=== PATIENT | male | born 1955 | race Caucasian/White ===

== ENCOUNTER 2023-05-31 04:09 | Day surgery (SDC) | payer OTHER, MEDICARE, SELFPAY ==
[2023-05-24 11:37] VITALS: BMI 35.9
--- NOTE | 2023-05-24 12:02 | PC.NURSE ---
Spoke with __PATIENT regarding medication _PLAVIX . Pt. verbalizes understanding that the last dose of __PLAVIX is to be taken on ____05/26/2023 and the Endoscopist will instruct them when to restart after the procedure.
--- NOTE | 2023-05-29 10:00 | SUR.PREOP ---
Patient called regarding upcoming procedure. Reviewed preop instructions, appointment times, and procedure prep.
--- NOTE | 2023-05-29 10:02 | SUR.PREOP ---
Patient called regarding upcoming procedure. Reviewed preop instructions, appointment times, and procedure prep. Medication discussed on what he needs to take the morning of the procedure.
[2023-05-31 09:28] VITALS: BP 126/76; PULSE 78; RESP 18; TEMP 36.4; O2SAT 94
[2023-05-31] MEDS: LACTATED RINGERS 1,000 ML 150 ML IV CONT (09:38)
[2023-05-31 09:45] LABS: Glucose Point of Care 164 mg/dl (65-105)
--- NOTE | 2023-05-31 10:06 | PM.HPGS ---
History of Present Illness History of Present Illness Consent: Risks, benefits, and alternatives have been discussed and questions answered. Patient agrees to proceed with procedure. Chief complaint: Hx colon polyps Narrative: Ryan Merritt is a 67 year old male Presents for screening colonoscopy. Patient has a history of colon polyps in the past. In 2018 was found to have adenomatous colon polyps. His 2 brothers have had colon cancer. Patient reports that his own weight appetite bowel movements currently are normal with no bleeding. No abdominal pain. Review of Systems Review of Systems: Review of systems noncontributory. [facility] Social History Social History Smoking packs per day: 0.5 Smoking cigarettes per day: 10.0 Years smoked: 7 Smoking pack-years: 3.50 Smoking status: Former smoker Tobacco type: cigarettes Alcohol intake: current Substance use: never Living arrangements: with family Spiritual care concerns: No Meds Home Medications and Allergies Home Medications Medication Instructions Recorded Confirmed Type aspirin 81 mg capsule 81 mg PO DAILY 05/24/23 05/24/23 History clopidogrel 75 mg tablet 75 mg PO DAILY 05/24/23 05/31/23 History escitalopram oxalate 20 mg tablet 20 mg PO DAILY 05/24/23 05/24/23 History mecobalamin (vitamin B12) 500 mcg 500 mcg PO DAILY 05/24/23 05/24/23 History chewable tablet metformin 500 mg tablet 500 mg PO BID 05/24/23 05/24/23 History metoprolol tartrate 25 mg tablet 12.5 mg PO BID 05/24/23 05/31/23 History rosuvastatin 40 mg tablet 40 mg PO DAILY 05/24/23 05/24/23 History Allergies Allergy/AdvReac Type Severity Reaction Status Date / Time No Known Allergies Allergy Unverified 05/31/23 09:27 Vital Signs Vital Signs - 24 hr 05/31/23 09:28 Temperature 97.5 F L Pulse Rate 78 Respiratory Rate 18 Blood Pressure 126/76 Pulse Oximetry 94 Oxygen Delivery Room Air Exam Narrative: Physical exam reveals patient to be alert. Vital signs stable. HEENT exam is unremarkable. Patient is anicteric. Lungs are clear to auscultation and percussion. Heart is without murmur or extra sounds. Abdomen bowel sounds are present soft nontender with no organomegaly. Digital external rectal exam normal. Assessment and Plan Assessment and plan (1) History of colon polyps: Code(s): Z86.010 - Personal history of colonic polyps Status: Acute Assessment and Plan: Patient has a history of adenomatous colon polyp most recently 2018. Plan for surveillance colonoscopy at 5 year intervals. (2) Family hx of colon cancer: Code(s): Z80.0 - Family history of malignant neoplasm of digestive organs Status: Acute Assessment and Plan: Two brothers have had colon cancer. Patient himself has colon polyps. Plan for surveillance colonoscopies at least every 5 years.
[2023-05-31 11:07] VITALS: BP 138/95; PULSE 68; RESP 26; O2SAT 98
--- NOTE | 2023-05-31 11:13 | SUR.PHASEII ---
Pt. may resume Plavix tomorrow per Dr Ayon. Instructed pt. Pt. verbalized understanding.
[2023-05-31 11:17] VITALS: BP 104/63; PULSE 62; RESP 14; O2SAT 100
[2023-05-31 11:27] VITALS: BP 101/71; PULSE 61; RESP 24; O2SAT 100
== END 2023-05-31 11:36 | disposition home or self-care (01) ==
PROVIDERS: PCP Internal Medicine; Visit Provider Internal Medicine Gastroenterology
PROC: 0DJD8ZZ Inspection of Lower Intestinal Tract, Via Natural or Artificial Opening Endoscopic (ICD-10-PCS; CPT 45378; principal; 2023-05-31 10:30)
DX: Z12.11 Encounter for screening for malignant neoplasm of colon (principal); D12.5 Benign neoplasm of sigmoid colon; K64.8 Other hemorrhoids; K57.30 Diverticulosis of large intestine without perforation or abscess without bleeding; Z80.0 Family history of malignant neoplasm of digestive organs; Z87.891 Personal history of nicotine dependence
CPT/HCPCS: 45385; 82948; 88305; J2704; J7120

== ENCOUNTER 2025-05-20 07:59 | Outpatient (CLI) | payer OTHER, MEDICARE, SELFPAY ==
--- NOTE | ~2025-05-20 | CT_ITS ---
EXAMINATION:CT lung screening DATE: 05/20/2025 08:30 INDICATION: Screening TECHNIQUE: Computed tomography (CT) of the chest was performed without intravenous contrast. The dose-length product (DLP) was 365.51 mGy-cm. COMPARISON: None. FINDINGS: 6 mm subpleural left lower lobe lung nodule image 76 series 4 is smoothly marginated but not clearly calcified or benign granulomatous nodule. 8 mm benign granuloma in the right lung base image 95 series 4. No other nodules or masses. Lungs are clear. Heart size normal no significant pericardial effusion. Sternal retention wires appear intact. Extensive coronary artery stenting and calcification. No significant pericardial effusion or bulky lymphadenopathy. Diffuse degenerative changes throughout the thoracic spine, mild fatty liver changes, and cholelithiasis noted in the upper abdomen. IMPRESSION: 1. A 6 mm left lower lobe smoothly marginated lung nodule. Lung RADS 3. Correlate with follow-up low-dose lung cancer screening chest CT in 6 months. 2. Other chronic findings as above. Reviewed, dictated and finalized at location A. R HELPER IMPRESSION: 1. A 6 mm left lower lobe smoothly marginated lung nodule. Lung RADS 3. Correla te with follow-up low-dose lung cancer screening chest CT in 6 months. 2. Other chronic findings as above.
--- OUTSIDE RECORDS SUMMARY | 2025-05-20 08:05 | XMS_ITS | Encounter Summary ---
Author Organization [facility] Address [address] [place] [address] Care Team Providers Care Podiatric Medicine Professor Name Role Phone Doroteo Bhatt MD Primary Care Provider [phone] Encounter Details Date Type Department Care Team (Late st Contact Info) Description 12/14/2019 Prep for Procedure [facility] Pre-Ad[facility] Testing [facility] [place], [place] [id number] Reji Willams MD [id number] [id number] Social History Tobacco Use Types Packs/Day Years Used Date Smoking Tobacco: Former Cigarettes Q uit: 2000 Smokeless Tobacco: Never Alcohol Use Standard Drinks/Week Comments Not Currently 0 (1 standard drink = 0.6 oz pur e alcohol) Sex and Gender Information Value Date Recorded Sex Assigned at Not on file Legal Sex Male 12:49 PM CDT Gender Identity Not on file Sexual Orientation Not on file COVID-19 Exposure Response Date Recorded In the last month, have you been in contact with someone who was confirmed or suspected to have Coronavirus / COVID-19? No / Unsure 12/17/2019 8:25 AM CDT documented as of this encounter Plan of Treatment Not on file documented as of this encounter Results * PRE-SURGICAL/PRE-PROCEDURE CORONAVIRUS (COVID 19) (12/14/2019 9:03 AM CDT) CORONAVIRUS SARS COV 2 PCR (RESP) NOT DETECTED NOT DETECTED 12/16/2019 5:13 AM CDT [facility] Comment: A Not Detected (negative) test result for this test means that SARS- CoV-2 RNA was not present in the specimen above the limit of detection. A negative result does not rule out the possibility of COVID-19 and should not be used as the sole basis for treatment or patient management decisions. If COVID-19 is still suspected, based on exposure history together with other clinical findings, re-testing should be considered in consultation with public health authorities. Laboratory test results should always be considered in the context of clinical observations and epidemiological data in making a final diagnosis and patient management decisions. Please review the Fact Sheets and FDA authorized labeling available for health care providers and patients using the following websites: [email or web address]://[email or web address][employer]/home/Covid-19/HCP/[employer]/fact- sheet.html [email or web address]://www.[employer]ceptions.[employer]/home/Covid-19/Patients/ [employer]/fact-sheet.html This test has been authorized by the FDA under an Emergency Use Authorization (EUA) for use by authorized laboratories. Due to the current public health emergency, [facility] is receiving a high volume of samples from a wide variety of swabs and media for COVID-19 testing. In order to serve patients during this public health crisis, samples from appropriate clinical sources are being tested. Negative test results derived from specimens received in non-commercially manufactured viral collection and transport media, or in media and sample collection kits not yet authorized by FDA for COVID-19 testing should be cautiously evaluated and the patient potentially subjected to extra precautions such as additional clinical monitoring, including collection of an additional specimen. Methodology: Nucleic Acid Amplification Test (NAAT) includes PCR or TMA Additional information about COVID-19 can be found at the [employer] website: [email or web address]/Covid19. Test performed at [facility] [id number] [place] [address] Director: RUDDY BARON DO,MPH NASOPHARYNGEAL SWAB / Unknown 12/14/2019 9:03 AM CDT us Reji Willams MD MICROBIOLOGY - GENERAL ORDERA BLES Final Result [facility] [address] [place] [address], documented in this encounter Visit Diagnoses Diagnosis Preoperative testing- Primary Preoperative examination, unspecified documented in this encounter Additional Health Concerns Infection Onset Date Last Indicated Resolved Time COVID-19 Rule Out 12/14/2019 12/14/2019 12/16/2019 5:13 AM CDT documented as of this encounter Care Teams Podiatric Medicine Professor Relationship Specialty Start Date End Date Doroteo Bhatt MD [address] [address] PCP - General INTERNAL MEDICINE 12/11/19 documented as of this encounter
--- OUTSIDE RECORDS SUMMARY | 2025-05-20 08:05 | XMS_ITS | Data Portability ---
Author Organization [place] [facility] [employer] Main Office Address [address] [place] [address] Care Team Providers Care Eye Surgeon Name Role Phone RUBEN BHATT Primary Care Provider [phone] RUBEN BHATT Referring Provider Assessment No assessment recorded. Plan of Treatment Reminders Order Date Submit Date Provider Last Modified By Organization Details Last Modified Time Details Appointments None recorded. Lab HbA1c (hemoglobi n A1c), blood 2024 025 [email or web address] [facility], [address] [place] [address], [facility] [address], [address], 5 09:59:51 lipid panel, serum 2024 025 [id number] [facility], [address] [place] [address], [address], 5 09:59:50 TSH, serum or plasma 2024 025 [id number] [facility], [address] [place] [address], [address], 5 09:59:50 CBC w/ auto diff 2024 025 [facility], [address] [facility], [facility] [address], [address], 5 09:59:50 CMP, serum or plasma 2024 025 [facility], [address] [facility], [facility] 2, [place], [address], 5 09:59:51 HbA1c (hemoglobi n A1c), blood 2024 025 [facility], [address], [place], [address], 5 09:03:29 lipid panel, serum 2024 025 [email or web address] [facility], [address], [place], [address], 5 09:03:28 CMP, serum or plasma 2024 025 [id number] [facility], [address] [facility], [address], [place], [address], 5 09:03:28 CBC w/ auto diff 2024 025 [facility], [address] [facility], [address], [place], [address], 5 09:03:28 unlisted lab - T4, free 2024 025 [id number] [facility], [address] [facility], [facility] 2, [place], [address], 5 09:03:28 TSH, ultra-sens itive, serum 2024 025 [id number] [facility], [address] [facility], [facility] 2, [place], [address], 5 09:03:28 lipid panel, serum 2023 024 [facility], [address] [facility], [address], [place], [address], 4 10:11:32 CMP, serum or plasma 2023 024 [email or web address] [facility], [address], [place], [address], 4 10:11:32 TSH, serum or plasma 2023 024 [id number] [facility], [address], [place], [address], 4 10:11:32 T4, free, serum 2023 024 [id number] [facility], [address], [place], [address], 4 10:11:32 CBC w/ auto diff 2023 024 [id number] [facility], [address], [place], [address], 10:11:32 PSA, serum or plasma 2023 024 [id number] [facility], [address], [place], [address], 10:11:32 HbA1c (hemoglobi n A1c), blood 2023 024 [id number] [facility], [address], [place], [address], 10:11:32 PSA, serum or plasma 2023 024 [id number] [facility], [address], [place], [address], 4 10:20:32 HbA1c (hemoglobi n A1c), blood 2023 024 [facility], [address], [place], [address], 4 10:20:31 microalbum in, urine 2023 024 [facility], [address], [place], [address], 4 10:20:32 lipid panel, serum 2023 024 [email or web address] [facility], [address] [facility], [address], [place], [address], 4 10:20:31 CMP, serum or plasma 2023 024 [facility], [address] [facility], [facility] 2, [place], [address], 4 10:20:31 CBC w/ auto diff 2023 024 [email or web address] [facility], [address] [facility], [address], [place], [address], 4 11:17:16 unlisted lab - T4, free 2023 024 [email or web address] [facility], [address] [place] [address], [facility] 2, [place], [address], 4 10:20:31 TSH, ultra-sens itive, serum 2023 024 [email or web address] [facility], [address] [facility], [facility] 2, [place], [address], 4 10:20:31 HbA1c (hemoglobi n A1c), blood 2022 023 [id number] [facility], [address] [facility], [facility] 2, [place], [address], 4 09:45:38 albumin/cr eatinine, mass ratio, urine 2022 023 [id number] [facility], [address] [facility], [facility] 2, [place], [address], 4 09:45:38 Referral None recorded. Procedures None recorded. Surgeries None recorded. Imaging None recorded. Medication Orders None recorded. Patient TargetsNo targets recorded. Patient Instructions Encounter Date Encounter Id Patient Instructions Last Modified By Organization Details Last Modified Time 05/13/2023 [id number] dementia rating scale-2* [email or web address] Not available 05/13/2023 11:41:21 alcohol misuse* [email or web address] Not available 05/13/2023 11:41:21 depression screening* [email or web address] Not available 05/13/2023 11:41:21 Timed Up and Go test (TUG)* [email or web address] Not available 05/13/2023 11:41:21 multi-dimensiona health assessment questionnaire* [email or web address] Not available 05/13/2023 11:41:21 Personalized a lt Plan and Screening Recommendations Advance Directives - Do you have one? No Not interested at this time Advance Directives - Do we have your advance directive on file in your health record? Primary Prevention/Interven tion (prevents or decreases the chance of common diseases from occurring) Smoking Risk: Non Smoker Alcohol Misuse Screening: Negative Weight: Overweight try to lose 10% of your body weight Physical activity: Need more exercise/physical activity Nutrition: Average Eat heart healthy diet Fall Risk (screened today): Low Vaccines Pneumococcal: Recommended today Influenza: Recommended today Chronic Disease Risks Stroke: Intermediate Risk Active diagnosis, Continue current treatment plan Heart Attack: Intermediate Risk Active diagnosis, Continue current treatment plan Clogging of the Arteries: Intermediate Risk Active diagnosis, Continue current treatment plan Diabetes: Intermediate Risk Active diagnosis, Continue current treatment plan Secondary Prevention/Interven tion (detects treatable diseases before they may cause symptoms, disability, or ) Prostate Cancer Screening: up to date Colon Cancer Screening: Colonoscopy Recommended Date Screening Last Performed: __2018__ Eye Disease Screening: Your next exam in: goes yearly Dementia Risk: Low I have no recommendations Depression Screening: Negative Active diagnosis, Continue current treatment plan [email or web address] Not available 05/13/2023 11:32:39 [facility] risk assessment stable. Follow-up for coronary artery disease, hyperlipidemia, type 2 diabetes, obstructive sleep apnea and obesity class three. Clinically stable. Last hemoglobin A1c was 7.2. Elective December 12 within acceptable ranges. Cholesterol is 142 HDL 37 LDL of 84. Is not due for low-dose CT scan of chest to the fact the stop smoking number years ago. Does need a colonoscopy follow-up. Will check a hemoglobin A1c and microalbumin. Follow up in six months. Portions of the record may have been created with voice recognition software. Occasional wrong-word or s ound-a-like substitutions may have occurred due to the inherent limitations of voice recognition software. Read the chart carefully and recognize, using context, where substitutions have occurred. Follow-up colonoscopy [email or web address] Not available 05/13/2023 11:40:45 11/11/2023 [id number] Follow-up jones ry artery disease, hyperlipidemia, type 2 diabetes obesity class two. Clinically stable. Check blood work consisting of CBC, CMP, lipid, thyroid and PSA. Also needs a hemoglobin A1c and microalbumin. Follow-up in six months Next Appointment: 6 Months Approximate Date: 05/09/2024 Portions of the record may have been created with voice recognition software. Occasional wrong-word or s ound-a-like substitutions may have occurred due to the inherent limitations of voice recognition software. Read the chart carefully and recognize, using context, where substitutions have occurred. Not available 11/11/2023 11:15:45 05/11/2024 [id number] Follow-up jones ry artery disease, type 2 diabetes, hyperlipidemia and obesity all clinically stable. Will check blood work consisting of CBC, CMP, lipid, thyroid and hemoglobin A1c. Continue on current Rx follow-up in six months Follow Up: 6 Months Approximate Date: 11/07/2024 Portions of the record may have been created with voice recognition software. Occasional wrong-word or s ound-a-like substitutions may have occurred due to the inherent limitations of voice recognition software. Read the chart carefully and recognize, using context, where substitutions have occurred. Created: Ruben Bhatt M.D. 05.11.2024 10:59 AM [email or web address] Not available 05/11/2024 11:59:53 11/09/2024 [id number] [facility] risk assessment stable. Follow-up for coronary artery disease, hyperlipidemia, type 2 diabetes and obstructive sleep apnea by history doing well. Will continue on current Rx check blood work consisting of CBC, CMP, lipid, thyroid and hemoglobin A1c level. Will continue on current Rx follow-up in six months Follow Up: 6 Months Approximate Date: 05/08/2025 Portions of record are template driven. When necessary additional context will be provided. Additionally some portions have been created with voice recognition software. Occasional wrong-word or s ound-a-like substitutions may have occurred due to the inherent limitations of voice recognition software. Read the chart carefully and recognize, using context, where substitutions may have occurred. Created: Ruben Bhatt M.D. 11.09.2024 10:14 AM [email or web address] Not available 11/09/2024 11:14:28 05/10/2025 [id number] Follow-up for coronary artery disease, hyperlipidemia, type 2 diabetes all clinically stable. Will continue on current medications follow-up in six months. Will recheck blood work. Additional Orders - Directives - Recommendations Recommended Testing 1. LDCT Immunizations and Vaccines 1. 2023-05 INFLUENZA 2. 2022-01 COVID BOOSTER PFIZER 3. RSV Recommended 4. Shingrix Recommended 5. Tetanus or TD Recommended Recommended Vaccine and Immunizations Discussed With Patient! Follow Up: 4 Months Approximate Date: 09/07/2025 Portions of record are template driven. When necessary additional context will be provided. Additionally some portions have been created with voice recognition software. Occasional wrong-word or s ound-a-like substitutions may have occurred due to the inherent limitations of voice recognition software. Read the chart carefully and recognize, using context, where substitutions may have occurred. Created: Ruben Bhatt M.D. 05.10.2025 10:26 AM [email or web address] Not available 05/10/2025 11:26:10 Reason for Referral None Reported. Results Created Date Observation Date Name Description Value Unit Range Abnormal Flag Note LastModifiedBy Organization Detail LastModifiedTime Result Notes None recorded. Problems Name Problem SNOMED Code Status Onset Date Resolution Date Notes Provider Name and Address Organization Details Recorded Time Pure hyperchole sterolemia 978341635 Active Not Available [facility] 3 14:23:30 Vertigo 426607749 Active Not Available [facility] 3 14:23:30 History of polyp of colon 520356150 Active Not Available [facility] 3 14:23:31 Impaired glucose tolerance 6863702 Active Not Available [facility] 3 14:23:32 Coronary artery stenosis 639096142 Active 2017 Not Available [facility] 3 14:23:30 Depressive disorder 34260029 Active 2017 Not Available [facility] 3 14:23:30 Chronic back pain 815087792 Active 2017 Not Available [facility] 3 14:23:30 Obstructiv e sleep apnea syndrome 22594818 Active 2018 Not Available [facility] 3 14:23:31 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 Not Available [facility] 3 14:23:31 Routine care Active 2021 Not Available [facility] 3 14:23:30 Memory impairment 144161143 Active 2021 Not Available [facility] 3 14:23:30 Screening for malignant neoplasm of prostate Active 2021 Not Available [facility] 3 14:23:31 Nicotine dependence 20066991 Active 2021 Not Available [facility] 3 14:23:31 Trigger finger of right hand 8857795899263 9101 Active 2021 Not Available [facility] 3 14:23:29 Finding of body mass index 302898636 Active 2021 Not Available [facility] 3 14:23:30 Neurogenic claudicati on 204919530 Active 2021 Not Available [facility] 3 14:23:30 Nodule of lung 509301399 Active 2021 Not Available [facility] 3 14:23:32 Pain in left sacroiliac joint 1862215439409 9102 Active 2022 Ruben Bhatt MD [address], [place], [address] , [facility] [employer] [facility] 3 11:58:25 Hyperlipid emia 71779806 Active 2022 Candis Oliva CMA [facility], [facility] 3 14:03:48 Acute gingivitis 41678064 Active 2023 Ruben Bhatt MD [address], [place], [address] , [facility] 4 10:58:24 Obese class II 0338467930489 05 Active 2023 Ruben Bhatt MD [address], [place], [address] , [facility] [employer] [facility] 4 11:10:58 Disorder of prostate 58806077 Active 2023 Ruben Bhatt MD [address], [place], [address] , [facility] [employer] [facility] 4 11:15:35 Steatotic liver disease 832980103 Active 2023 Yolis Hansen null, [facility] [employer] [facility] 4 12:04:32 Type 2 diabetes mellitus 24359440 Active 2024 Candis Oliva CMA null, [facility] [employer] [facility] 5 14:59:56 Problem Notes None recorded. Procedures Surgical History Date Name Laterality Status Provider Name and Address Organization Details Recorded Time 3 Medicare Wellness CPT Code, Initial completed Mariam Alcantar RN [facility] [employer] [facility] 05/13/2023 11:25:48 Imaging Results None recorded. Procedure Notes None recorded. Medical Equipment None Reported. Allergies Allergen ID Allergen Name Allergen Category Reaction Reaction Severity Criticality Documentation Date Start Date Code Code System Note Provider Name and Address Organization Details Recorded Time [address] [facility] medicatio n Not available Not available high 11/09/2024 [id number] RxNorm Anni Joseph [facility] [employer] [facility] 5 11:00:35 Medications Name Sig Start Date Stop Date Status Note LastModified by Organization Details LastModified Time cyclobenz aprine 10 mg tablet Take 1 tablet 3 times a day by oral route. 05/11 completed Not Available Not Available Not Available metformin 500 mg tablet Take 1 tablet by mouth twice daily. active Not Available Not Available No t Available Klor-Con 20 mEq tablet,ex tended release Take 1 tablet every day by oral route. 02/20 completed Not Available Not Available Not Available citalopra m 40 mg tablet Take 1 tablet every day by oral route. 09/21 completed Not Available Not Available Not Available hydrocodo ne 5 mg-acetam inophen 325 mg tablet TK 1 TO 2 TS PO Q 6 H PRF ACUTE PAIN. 09/21 completed Not Available Not Available Not Available Lasix 40 mg tablet Take 1 tablet every day by oral route. 02/20 completed Not Available Not Available Not Available meloxicam 15 mg tablet 03/21 completed Not Available Not Available Not Available bupivacai ne HCl 0.5 % (5 mg/mL) injection solution Take 1 mL by injectio n route. 11/22 completed Not Available Not Available Not Available clopidogr el 75 mg tablet Take 1 tablet every day by oral route. active Not Available Not Available No t Available aspirin 81 mg tablet,de layed release Take 1 tablet every day by oral route. 2012 active Not Available Not Available Not Avai lable oxycodone -acetamin ophen 5 mg-325 mg tablet Take 1 tablet every 6 hours by oral route. 02/20 completed Not Available Not Available Not Available citalopra m 20 mg tablet Take 1 tablet by mouth daily. 09/21 completed Not Available Not Available Not Available Vitamin D3 10 mcg (400 unit) tablet Take 1 tablet every day by oral route. active Not Available Not Available No t Available famotidin e 20 mg tablet Take 1 tablet every day by oral route. 02/20 completed Not Available Not Available Not Available Kenalog 10 mg/mL suspensio n for injection In office injectio n administ ered by the provider 11/22 completed [facility]: [phone] 09-20 Not Available Not Available Not Available cephalexi n 500 mg capsule TK ONE C PO TID FOR 7 DAYS 09/21 completed Not Available Not Available Not Available erythromy elizabeth 5 mg/gram (0.5 %) eye ointment APPLY A SMALL AMOUNT IN AFFECTED EYE(S) THREE TIMES DAILY DIRECTED active Not Available Not Available No t Available cyanocoba daryl (vit B-12) 1,000 mcg/mL injection solution Inject 1 mL every month by intramus cular route. 02/14 completed Not Available Not Available Not Available metformin 1,000 mg tablet Take 1 tablet twice a day by oral route. active Not Available Not Available No t Available Valtrex 1 gram tablet Take 1 tablet 3 times a day by oral route. 08/22 completed Not Available Not Available Not Available gabapenti n 300 mg capsule 03/21 completed Not Available Not Available Not Available [place] 10 mg-325 mg tablet Take 1 tablet every 6 hours by oral route. 05/21 completed [place] [employer] cover the informat ion containe d in this database Increase Text Size Decrease Text Size Restore Default Font-Siz eClick to Resize TextLast Name First Name Street Address City State Zip Date of Date Filled Label Name Strength Metric Qty/Days Supply Payment Type ? Pharmacy Name/ City Prescrib er Name [place] [address] [facility] [address] 7 10/03/2017 HYDROCOD ONE-ACET AMINOPHE N 7.5-325M G 40/10 Insuran e [facility] RUBEN BHATT MD [place] [address] [facility] [id number] 7 09/09/2017 HYDROCOD ONE-ACET AMINOPHE N 7.5-325M G 40/10 [facility] e [facility] [place] MARCO BHATT Not Available Not Available Not Available [place] 7.5 mg-325 mg tablet Take 1 tablet every 6 hours by oral route. 10/24 completed Not Available Not Available Not Available Zocor 40 mg tablet Take 1 tablet every day by oral route. 2012 active Not Available Not Available Not Avai lable glipizide 5 mg tablet TAKE 1 TABLET BY MOUTH TWICE DAILY active Not Available Not Available No t Available amoxicill in 875 mg-potass ium clavulana te 125 mg tablet TAKE 1 TABLET BY MOUTH EVERY 12 HOURS 11/10 completed Not Available Not Available Not Available escitalop july 20 mg tablet Take 1 tablet by mouth daily. 2024 active Not Available Not Available Not Avai lable rosuvasta tin 40 mg tablet Take 1 tablet by mouth daily. 2024 active Not Available Not Available Not Avai lable Crestor 10 mg tablet Take 1 tablet every day by oral route. active Not Available Not Available No t Available Crestor 20 mg tablet Take 1 tablet every day by oral route. 10/13 completed Not Available Not Available Not Available metoprolo l tartrate 25 mg tablet Take 1 tablet twice a day by oral route. active Not Available Not Available No t Available Lyrica 25 mg capsule Take 2 capsules every day by oral route. 2012 active Not Available Not Available Not Avai lable metoprolo l tartrate 6.25 mg bid 02/20 completed Not Available Not Available Not Available docusate calcium 02/20 completed Not Available Not Available Not Available lidocaine (PF) 10 mg/mL (1 %) injection solution In office injectio n administ ered by the provider 07/26 completed [facility]: 0409-427 11-17 Not Available Not Available Not Available diclofena c 1 % topical gel APPLY 2 GRAMS DAILY TOPICALL Y TO SORE PORTION OF CHEST AND RUB IN DIRECTED 09/21 completed Not Available Not Available Not Available sodium,po tassium,m ag sulfates 17.5 gram-3.13 gram-1.6 gram oral soln [employer]ITT[employer] IONS. active Not Available Not Available No t Available Farxiga 10 mg tablet 11/09 completed Not Available Not Available Not Available FreeStyle Ashley 3 Sensor device use to check blood sugar continuo usly 2024 active Not Available Not Available Not Avai lable FreeStyle Ashley 3 Rodney USE TO MONITOR BLOOD SUGAR active Not Available Not Available No t Available FreeStyle Ashley 3 Rodney use to monitor blood sugar 05/03 completed Not Available Not Available Not Available Vitals Date Recorded Body height Body mass index (BMI) Body weight Heart rate Body temperature Oxygen saturation Systolic And Diastolic Provider Name and Address Organization Details Last Updated DateTime 5 172.72 cm 37.1 kg/m2 592419. 54 g 70 /min 97 [degF] 96 % 122/60 mm[Hg] Anni Joseph [facility] 5 10:59:27 Date Recorded Body height Body mass index (BMI) Body weight Heart rate Body temperature Oxygen saturation Systolic And Diastolic Provider Name and Address Organization Details Last Updated DateTime 4 172.72 cm 37.7 kg/m2 912477. 91 g 85 /min 97.4 [degF] 96 % 118/70 mm[Hg] AVINASH Polo [facility] 4 10:54:42 Date Recorded Body height Body mass index (BMI) Body weight Body temperature Heart rate Respiratory rate Oxygen saturation Systolic And Diastolic Provider Name and Address Organization Details Last Updated DateTime 5 172.72 cm 37.4 kg/m2 890965. 72 g 97.5 [degF] 62 /min 16 /min 98 % 112/64 mm[Hg] Bekah Luis RN [facility] 5 10:48:46 Date Recorded Body height Body mass index (BMI) Body weight Heart rate Body temperature Oxygen saturation Systolic And Diastolic Provider Name and Address Organization Details Last Updated DateTime 4 172.72 cm 36.8 kg/m2 388284. 35 g 67 /min 97 [degF] 96 % 112/72 mm[Hg] Christy Richardson Angella [facility] 4 11:37:59 Date Recorded Body height Body mass index (BMI) Body weight Heart rate Body temperature Oxygen saturation Systolic And Diastolic Provider Name and Address Organization Details Last Updated DateTime 3 172.72 cm 38.2 kg/m2 521440. 48 g 65 /min 97 [degF] 97 % 122/60 mm[Hg] Anni Joseph [facility] 3 11:19:04 Date Recorded Pain severity - 0-10 verbal numeric rating [Score] - Reported Provider Name and Address Organization Details Last Updated DateTime 05/13/2023 0 Mariam Alcantar RN [facility] 05/13/2023 11:26:04 Social History Question Answer Notes LastModified by Organizat ion Details LastModified Time Tobacco Smoking Status Former Smoker Not Available [facility] 08/01/2022 14:17:16 Do You Have An Advance Directive? No [id number] Information not available 08/01/2022 Are You Blind Or Do You Have Difficulty Seeing? No [email or web address] Information not available 05/13/2023 Are You Deaf Or Do You Have Serious Difficulty Hearing? No [email or web address] Information not available 05/13/2023 What Type Of Diet Are You Following? REGULAR [email or web address] Information not available 05/13/2023 Have There Been Any Changes To Your Family Or Social Situation? No [email or web address] Information not available 05/13/2023 What Is The Fluoride Status Of Your Home? Unknown [email or web address] Information not available 05/13/2023 When Did You Quit Smoking? 16+yearssincelastci ally [id number] Information not available 08/01/2022 Are There Any Guns Present In Your Home? No Information not available 05/13/2023 Do You Use Insect Repellent Routinely? No [email or web address] Information not available 05/13/2023 Where Do You Live? SingleLevelHouse [email or web address] Information not available 05/13/2023 Guns Present In The Home? No [email or web address] Information not available 05/13/2023 Are You Able To Care For Yourself? Yes [email or web address] Information not available 05/13/2023 Are You Blind Or Do Yo Have Difficulty Seeing? No [email or web address] Information not available 05/13/2023 Are You Deaf Or Do You Have Serious Difficulty Hearing? No [email or web address] Information not available 05/13/2023 Live Alone Of With Others? With Others [email or web address] Information not available 05/13/2023 Do You Have A Medical Power Of Operator Receptionist? No [id number] Information not available 08/01/2022 What Was The Date Of Your Most Recent Tobacco Screening? 05/13/2023 [email or web address] Information not available 05/13/2023 Do You Have Any Pets? Yes [email or web address] Information not available 05/13/2023 What Is Your Relationship Status? [email or web address] Information not available 05/13/2023 Do You Use Your Seat Belt Or Car Seat Routinely? Yes [email or web address] Information not available 05/13/2023 Do You Have Smoke And Carbon Monoxide Detectors In Your Home? Yes [email or web address] Information not available 05/13/2023 Are You Passively Exposed To Smoke? No [email or web address] Information not available 05/13/2023 Are There Any Smokers In Your House? No Information not available 05/13/2023 Do You Use Sunscreen Routinely? Yes [email or web address] Information not available 05/13/2023 Have You Recently Traveled Abroad? No [email or web address] Information not available 05/13/2023 Do You Have Difficulty Walking Or Climbing Stairs? No [email or web address] Information not available 05/13/2023 Sex: Male Functional Status Question Answer Note LastModified by Organizat ion Details LastModified Time What is your level of alcohol consumption? Occasional [email or web address] Information not available 05/13/2023 Do you have transportation difficulties? No [email or web address] Information not available 05/13/2023 Are you able to walk independently without assistance or assistive devices? YESWOREST [email or web address] Information not available 05/13/2023 Do you have difficulty doing errands alone? No [email or web address] Information not available 05/13/2023 Are you able to care for yourself independently? Yes Information not available 05/13/2023 Do you have difficulty dressing, bathing, grooming, or toileting? No [email or web address] Information not available 05/13/2023 What is your exercise level? Occasional [email or web address] Information not available 05/13/2023 Mental Status Question Answer Note LastModified by Organization D etails LastModified Time Do you have difficulty concentrating, remembering or making decisions? No [email or web address] Information no t available 05/13/2023 Family History Relationship Description Onset Age of this Age Resolved Age Notes LastModified by Organization Details LastModified Time Sister Family history of malignant neoplasm [id number] Not available 08/01/2022 14:17:33 Sister Hypertensive disorder [id number] Not available 08/01/2022 14:17:34 Brother Family history of malignant neoplasm [id number] Not available 08/01/2022 14:17:34 Brother Diabetes mellitus [id number] Not available 08/01/2022 14:17:34 Brother Heart disease [id number] Not available 08/01/2022 14:17:34 Notes:Mother 65 yea rs old Father 80 years old 3 Brothers 1 Living 4 Sisters 3 Living Mother Hx: Seizures, ASHD Father Hx: CVA Sister Hx: Accidental (1) Brother Hx: Ca of Colon (2) Medical History Condition Response NERVE DISEASE N BLINDNESS N RHEUMATIC FEVER N KIDNEY STONES N BLADDER PROBLEMS N MRSA N OTHER # 1 N POLIO N LUNG DISEASE/DISORDER N HISTORY OF DRUG ABUSE N RADIATION / CHEMOTHERAPY N COPD N Other # 2 N BLOOD DISEASES N EAR OR HEARING PROBLEMS N MUMPS N SHINGLES N BOWEL PROBLEMS N DEPRESSION (INCLUDING POST ) N STROKE/TIA N ULCERS N BENIGN PROSTATIC HYPERPLASIA N MEASLES N HYPOTENSION N MYOCARDIAL INFARCTION N OBESITY N GERD/NAUSEA N ANEURYSM N URINARY/BLADDER/KIDNEY PROBLEMS N CORONARY ARTERY DISEASE (CAD) Y ADDICTION CONCERNS N ENDOMETRIOSIS N Impotence N USE OF BLOOD THINNERS N SKIN PROBLEMS N GASTROINTESTINAL DISORDER N PERIPHERAL VASCULAR DISEASE N MUSCLE,JOINT OR BONE PROBLEMS N GASTROINTESTINAL BLEEDING N BLOOD CLOTS N ASTHMA N CATARACTS N ERECTILE DYSFUNCTION N VARICOSITIES N GI PROBLEMS N Low Testosterone N INFERTILITY N AIDS/HIV N CHEMOTHERAPY / RADIATION N LIVER DISEASE N MALE HYPOGONADISM N HYPERTENSION N Deficiency N TOURETTE'S N ANXIETY DISORDER N BLOOD TRANSFUSION N ANEMIA/BLOOD DISORDER N CHRONIC EAR INFECTIONS N BRONCHITIS N TUBERCULOSIS N GLAUCOMA N FOOT PROBLEM N DIVERTICULITIS N CHICKENPOX N SLEEP APNEA Y INFECTIOUS DISEASE N HEART ARRHYTHMIA N PROSTATE N INSOMNIA N HIGH CHOLESTEROL / HYPERLIPIDEMIA Y HYPERTHYROIDISM N EYE PROBLEMS N EDEMA N CHRONIC PAIN SYNDROME N HYPOTHYROIDISM N CAROTID BLOCKAGE N CONSTIPATION N BACK / NECK PROBLEMS N HAVE YOU BEEN HOSPITALIZED OR SEEN IN [facility] IN THE PAST YEAR ? N ATHEROSCLEROSIS N BREAST PROBLEMS N DIALYSIS N ECZEMA N OSTEOPOROSIS N ARTHRITIS N NO SIGNIFICANT PAST MEDICAL HISTORY N APPENDICITIS N DIABETES, TYPE Y BAD TEETH N ENT N HEARTBURN / REFLUX N AUTISM SPECTRUM DISORDER (ASD) N HEPATITIS / LIVER DISEASE N GOUT N SLEEP DISORDER N ALZHEIMER'S DISEASE N Brain Problems N HERPES N DEMENTIA N HEADACHES/MIGRAINES N SEIZURES/EPILEPSY N VASCULAR DISEASE N PACEMAKER N Blood Disorder N DIZZINESS N HEART DISEASE/HEART PROBLEMS N KIDNEY DISEASE N MULTIPLE SCLEROSIS N CARDIAC ARRHYTHMIA N CANCER: SPECIFY N ATRIAL FIBRILLATION N Gall Stones N PULMONARY EMBOLISM N AUTOIMMUNE DISEASE N Immunizations Vaccine Type Date Status Note Provider Nam e and Address Organization Details Recorded Time Influenza, high-dose, trivalent, PF 5 completed Bekah Luis RN null, [place] [facility] 05/11/2025 08:41:27 Influenza, high-dose, quadrivalent, PF 3 completed Ruben Bhatt MD [address], [address], [place], [address], [place] [facility] 05/13/2023 11:33:56 SARS-COV-2 (COVID-19) vaccine, UNSPECIFIED 2 completed Not Available [facility] 08/01/2022 14:32:53 SARS-COV-2 (COVID-19) vaccine, UNSPECIFIED 1 completed Not Available [facility] 08/01/2022 14:32:54 COVID-19 Non-[place] Vaccine, UNSPECIFIED 1 completed Not Available [facility] 08/01/2022 14:32:54 COVID-19 Non-US Vaccine, UNSPECIFIED 1 completed Not Available [facility] 08/01/2022 14:32:54 Influenza, high-dose, quadrivalent, PF 2 completed Not Available [facility] 08/01/2022 14:32:54 Influenza, split virus, quadrivalent, PF 6 completed Not Available [facility] 08/01/2022 14:32:54 Influenza, split virus, quadrivalent, preservative 5 completed Not Available [facility] 08/01/2022 14:32:55 Past Encounters Encounter ID Performer Location Encounter Start Date Encounter Closed Date Diagnosis/Indication Diagnosis SNOMED-CT Code Diagnosis ICD10 Code Diagnosis IMO Codes Diagnosis Note [id number] Ruben Bhatt MD [facility] Internal Med [facility] [address] [facility] [address] [place] [address] 09/21/2020 00:00:00 09/21/2020 11:49:05 [id number] Ruben Bhatt MD [facility] Internal Med [facility] [address], [facility] [address] [place] [address] 01/25/2021 00:00:00 01/25/2021 11:03:26 [id number] Alberto Patel MD [facility] [place] [address] [place] [address] 02/14/2021 00:00:00 02/14/2021 09:45:58 [id number] Alberto Patel MD [facility] [place] [address] [place] [address] 03/28/2021 00:00:00 03/28/2021 09:40:59 [id number] Ruben Bhatt MD [facility] [place] [address] [address] 07/26/2021 00:00:00 07/26/2021 11:32:35 [id number] Alberto Patel MD [facility] [place] [address] [facility] [address] [place] [address] 08/15/2021 00:00:00 08/15/2021 09:38:20 [id number] Ruben Bhatt MD [facility] [place] [address] [address] 11/22/2021 00:00:00 11/22/2021 11:19:21 [id number] Ruben Bhatt MD [facility] [place] [address] [address] 03/21/2022 00:00:00 03/21/2022 11:04:41 [id number] Ruben Bhatt MD [facility] [address] [address] 07/18/2022 00:00:00 07/18/2022 10:57:25 [id number] Ruben Bhatt MD [facility] [address] [address] 11/12/2022 11:19:13 11/12/2022 12:10:04 Coronary artery stenosis 888959875 I25.10 Obstructiv e sleep apnea syndrome 42458745 G47.33 Type 2 oanh betes mellitus without complication 342635490 E11.9 Pure hypercholesterolemia 954024243 E78.00 Pain in le ft sacroiliac joint 0352248899 0840276 M53.3 Obese class II 895181148 1 65486 E66.9 Disorder of prostate 302 49636 N42.9 [id number] Ruben Bhatt MD [facility] [address] [address] [address] 05/13/2023 11:07:52 05/13/2023 11:47:02 Administration of influenza vaccine 59571042 Z23 Adult heal th examination 591354645 Z00.00 Screening for disorder 602767572 Z13.9 Coronary a rtery stenosis 248159318 I25.10 Hyperlipidemia 82127972 E78.5 Type 2 oanh betes mellitus without complication 312056857 E11.9 Obstructiv e sleep apnea syndrome 41346070 G47.33 Obese class III 72969867 5 E66.01 [id number] Ruben Bhatt MD [facility] Internal Med [address] [address] [address] 11/11/2023 10:48:58 11/11/2023 11:19:35 Coronary artery stenosis 399140077 I25.10 Hyperlipidemia 99832690 E78.5 Type 2 oanh betes mellitus without complication 022594366 E11.9 Obese class II 129763017 1 74163 E66.9 Disorder of prostate 302 25184 N42.9 [id number] Ruben Bhatt MD [facility] Internal Med [place] [address] [address] 05/11/2024 11:27:34 05/11/2024 12:11:20 Coronary artery stenosis 292424987 I25.10 Type 2 oanh betes mellitus without complication 206189722 E11.9 Pure hypercholesterolemia 194677145 E78.00 Depressive disorder 3548 9007 F32.A Disorder of prostate 302 54695 N42.9 [id number] Ruben Bhatt MD [facility] Internal Med [place] [address] [address] 11/09/2024 10:46:54 11/09/2024 11:17:24 General examination of patient 383874969 Z00.00 [id number] Coronary a rtery stenosis 256085855 I25.10 Pure hypercholesterolemia 824147160 E78.00 Type 2 oanh betes mellitus 22499740 E11.9 73299898 Obstructiv e sleep apnea syndrome 02242684 G47.33 [id number] Ruben Bhatt MD [facility] Internal Med [place] [address] [address] 05/10/2025 10:40:30 05/10/2025 11:40:01 Coronary artery stenosis 357269686 I25.10 Pure hypercholesterolemia 024284025 E78.00 Type 2 oanh betes mellitus 55252237 E11.69 E11.9 23118345 [id number] Health Concerns Section Related Observation LastModified by Organization Detai ls LastModified Time None Recorded Concern Status LastModified by Organization Details LastModified Time None Recorded Advance Directives Directive N: Payers Insurance Date Sequence Insurance Name Policy Number Policy Yen Covered Member ID Yen Member ID Guarantor Name 05/08/2025 1 [facility] [id number] Lynn Merritt [id number] Ryan Shrestha Chester 05/08/2025 2 [place] Ryan Merritt [id number] Ryan Shrestha Chester Notes Date Note Type Note Provider Name and Address Organization Details Recorded Time 05/13/2023 text/html Patient Name: Ryan Merritt SrDate Of Service: Saturday ( 05.13.2023 ): 1955 Age: 67 Vital Signs:Blood Pressure: Sitting Rt. Arm 122/60Pulse: Sitting 65 /min and RegularRespiratory Rate: 12Height 68 in or 1.7 mWeight 251 lb or 113.9 kgBMI 38.2Temperature: 97 F or 36.1 CPulse Oximetry: 97 % at rest on no oxygen Chief Complaint: Addressed in HPI Problems or conditions discussed in the HPI were the only ones reviewed during the encounter.Only social and family history addressed in the HPI were reviewed during this encounter. A significant, separate E/M service was performed to evaluate the current and new problems. Attendant(s): NoneConstitutional and Systemic Symptoms:none Medication Reconciliation: from medication list. Wqhhgpyxcme31/13/2023: Echocardiogram shows an estimated ejection fraction approximately 55%. Normal-appearing mitral valve mitral valve regurgitation mild. Chronic valve leaflets are structurally normal. No evidence of aortic insufficiency. The tricuspid valves well visualized there is mild tricuspid regurgitation. History of Present Illness Reviewed the findings of the preventative health visit. Addressed all areas with the patient, patient's family or caregivers. Preventative examinations and testing immunizations - vaccinations, colonic neoplasm screening, PSA and LDCT thorax all reviewed and ordered where patient was amenable to the recommendations. Cognitive function was normal. Depression addressed and where necessary medications were adjusted or instituted. End of life and living will briefly discussed with patient and where these can be filled out and legally executed. Other blood and imaging studies were ordered if considered necessary. Other recommendations may be found in the encounter note. #1. Coronary Artery Disease: There has been no change in frequency - duration - intensity in frequency, duration or intensity of chest pain. Other Complaints: none The frequency of anginal attacks is none at all. Additional Symptoms: none Therapy reviewed regarding cardiovascular management includes Aspirin, Crestor, Metoprolol Tartrate and Plavix #2. Type II Hypercholesterolaemia: Currently taking medication and tolerating well. No interval complaints of any muscle pain or arthralgia. No significant liver changes with medications. Last lipid panel: fair control. Therapy reviewed regarding treatment of cholesterol management and include diet and Crestor. #3. Type II Diabetes: Has had no polyuria polyphagia or polydipsia. Has had no hypoglycemic like responses. No new history of any numbness, tingling, weakness or visual problems. No nausea, anorexia or other constitutional symptoms. There has been no foot problems or non healing lesions. The last HAIC was <6.5. Average blood sugars 125-150 mg%. Checking sugars : several times a week Medication Types Include: Metformin Secondary complications include none. Macro-vascular complications include ASHD. Therapy reviewed regarding diabetic management and include Glucophage Compliance: good Renal Protection: not required at this stage Lipid management: statins Urinary microalbumin: A1 . Ophthalmological: has seen eye doctor within the last year #4. Sleep Apnea: Type: JEFFERY Current doing well. No significant daytime somnolence or problems performing daily chores. Using CPAP on nightly basis . Overall has shown considerable improvement.[place] Sleepiness ScaleSitting and ReadinWatching TV: 1Sitting Inactive in a Public Place: 1Passenger in a Car: 1Lying Down in Afternoon: 0Sitting and Talking to someone: 1Sitting quietly after lunch: 0In a car while stopped or drivinScore Interpretation: 0-7 No evidence of abnormally sleepy #5. Hx of obesity. Currently Class 3 Obesity VT > 40. Has tried numerous dietary support and supplements with no benefit. Instructed on the health consequences of the obese status particularly cancer - diabetes and heart disease. Discussed new modalities of weight loss including GLP-1 medications that are used to treat diabetes. Potential candidate for bariatric surgery: No. Wishes to be evaluated by Dietary: No and was offered to be evaluated and instructed by program developer on weight loss diet.Medication List Reviewed and Reconciled 05/13/2023pap As DirectedFlexeril 10 MG One Three Times A DayCrestor 40 MG (TABLET - ORAL) One DailyPlavix 75 MG (TABLET - ORAL) One DailyAspirin 81 MG One DailyMetoprolol Tartrate 25 MG (TABLET - ORAL) 1/2 Tab BidEscitalopram 20 MG (CAPSULE - ORAL) Once DailyGlucophage 500 MG (TABLET - ORAL) One BidVaccination and Ypkhqvcmnnpk9345-27 Vccdebdtp4037-74 Covid Booster Xttxwt9650-21 Covid PfizerSurgical HistoryCABG, Bialteral CTS, Rt. Rotator CuffPreventative Testing Confirmed by Our Shdkhsm2511/26/2022 ALBUMIN 4.4 G/DL N011/26/2022 PSA 1.8 NG/ML N011/26/2022 MICRO ALBUMIN 151.0 UG/ML N011/26/2022 HAIC 7.2 % H001/23/2022 TSXWINWTT60/18/2022 LDCT /09/2017 COLONOSCOPY (5 YEARS) 10/04/2022Social HistoryMarital Status: MarriedSmoking Hx: 1 packs of cigarettes per day for 5 years quit 2006 Drinking Hx: 18 oz cans of soft drinks per day.Exercise: InfrequentlySexual Hx: Sexually ActiveOccupation: Steel WorkerFamily HistoryMother 65 years oldFather 80 years old3 Brothers 1 Living4 Sisters 2 LivingMother Hx: Seizures, ASHDFather Hx: CVASister Hx: Accidental (1) , CA Breast(1)Brother Hx: Ca of Colon (2) TEST RESULT RANGE UNITSHEMOGLOBIN A1C Date: 11/26/2022HEMOGLOBIN A1C 7.2 4.8-5.6 %LIPID PANEL Date: 11/26/2022HOLESTEROL, TOTAL 142 100-199 MG/DLTRIGLYCERIDES 115 0-149 MG/DLHDL CHOLESTEROL 37 >39 MG/DLLDL CHOL CALC (NIH) 84 0-99 MG/DLPSA (SERIAL MONITOR) Date: 3PROSTATE SPECIFIC AG 1.8 0.0-4.0 NG/ML Ruben Bhatt MD [address] [facility], [facility] [address], [place], [address], [facility] 05/13/2023 11:41:26 11/11/2023 text/html Patient Name: Ryan Merritt SrDate Of Service: Saturday ( 11.11.2023 ): 1955 Age: 67 There has been approximately a 3 lb weight loss since 05/13/2023. This represents approximately a 1.2% change in weight. Weight change attributable to lifestyle changes. Vital Signs:Blood Pressure: Sitting Rt. Arm 118/70Pulse: Sitting 87 /min and RegularRespiratory Rate: 12Height 68 in or 1.7 mWeight 248 lb or 112.5 kgBMI 37.7Temperature: 97.4 F or 36.3 CPulse Oximetry: 96 % at rest on no oxygen Chief Complaint: Addressed in HPI Problems or conditions discussed in the HPI were the only ones reviewed during the encounter.Only social and family history addressed in the HPI were reviewed during this encounter. Attendant(s): NoneConstitutional and Systemic Symptoms:none Medication Reconciliation: from medication list. Ymyzegxwpsd84/13/2023: Echocardiogram shows an estimated ejection fraction approximately 55%. Normal-appearing mitral valve mitral valve regurgitation mild. Chronic valve leaflets are structurally normal. No evidence of aortic insufficiency. The tricuspid valves well visualized there is mild tricuspid regurgitation. History of Present Illness #1. Coronary Artery Disease: There has been no change in frequency - duration - intensity in frequency, duration or intensity of chest pain. Other Complaints: none The frequency of anginal attacks is none at all. Additional Symptoms: none Therapy reviewed regarding cardiovascular management includes Aspirin, Crestor, Metoprolol Tartrate and Plavix #2. Type II Hypercholesterolaemia: Currently taking medication and tolerating well. No interval complaints of any muscle pain or arthralgia. No significant liver changes with medications. Last lipid panel: fair control. Therapy reviewed regarding treatment of cholesterol management and include diet and Glucophage. #3. Type II Diabetes: Has had no polyuria polyphagia or polydipsia. Has had no hypoglycemic like responses. No new history of any numbness, tingling, weakness or visual problems. No nausea, anorexia or other constitutional symptoms. There has been no foot problems or non healing lesions. The last HAIC was DCCT HAIC: 7.2 Calculated MB mg%. Average blood sugars > 150 mg%. Checking sugars : several times a week Medication Types Include: Metformin Secondary complications include none. Macro-vascular complications include ASHD. Therapy reviewed regarding diabetic management and include Glucophage Compliance: good Renal Protection: not required at this stage Lipid management: statins Urinary microalbumin: A1 . Ophthalmological: has seen eye doctor within the last year #4. Hx of obesity. Currently Class 2 Obesity BMI 35-39.99. Has tried numerous dietary support and supplements with no benefit. Instructed on the health consequences of the obese status particularly cancer - diabetes and heart disease. Discussed other modalities of weight loss GLP-1 medications that are used to treat diabetes. Potential candidate for bariatric surgery: No. Wishes to be evaluated by Dietary: No and was offered to be evaluated and instructed by program developer on weight loss diet. Active Medication ListCpap As DirectedFlexeril 10 MG One Three Times A DayCrestor 40 MG (TABLET - ORAL) One DailyPlavix 75 MG (TABLET - ORAL) One DailyAspirin 81 MG One DailyMetoprolol Tartrate 25 MG (TABLET - ORAL) 1/2 Tab BidEscitalopram 20 MG (CAPSULE - ORAL) Once DailyGlucophage 500 MG (TABLET - ORAL) One Bid Vaccination and Turpsoipxphv9834-30 Zhuqlefvk4688-17 Covid Booster Ldriwu0259-92 Covid Pfizer Surgical Ntjrhve1581-92 TWEH9147-74 Bialteral QSP0950-58 Rt. Rotator Cuff Preventative Jjbeplk9805/31/2023 COLONOSCOPY ( 4 YEARS ) 7011/26/2022 ALBUMIN 4.4 G/DL N011/26/2022 PSA 1.8 NG/ML N011/26/2022 MICRO ALBUMIN 151.0 UG/ML N011/26/2022 HAIC 7.2 % H001/23/2022 CQIHETLBJ67/18/2022 LDCT 12/18/2022 Social HistoryMarital Status: MarriedSmoking Hx: 1 packs of cigarettes per day for 5 years quit 2006 Drinking Hx: 18 oz cans of soft drinks per day.Exercise: InfrequentlySexual Hx: Sexually ActiveOccupation: Music Therapy Teacher Family HistoryMother 65 years oldFather 80 years old3 Brothers 1 Living4 Sisters 2 LivingMother Hx: Seizures, ASHDFather Hx: CVASister Hx: Accidental (1) , [place] Breast(1)Brother Hx: Ca of Colon (2) Ruben Bhatt MD [address] [facility], [facility] [address], [place], [address], [place] [employer] [facility] 11/11/2023 11:16:04 05/11/2024 text/html Patient Name: Ryan Merritt SrDate Of Service: Saturday ( 05.11.2024 ): 1955 Age: 68 There has been approximately a 6 lb weight loss since 11/11/2023. This represents approximately a 2.4% change in weight. Weight change attributable to lifestyle changes. Vital Signs:Blood Pressure: Sitting Rt. Arm 112/72Pulse: Sitting 67 /min and RegularRespiratory Rate: 16Height 68 in or 1.7 mWeight 242 lb or 109.8 kgBMI 36.8 Chief Complaint: Addressed in HPI Problems or conditions discussed in the HPI were the only ones reviewed during the encounter.Only social and family history addressed in the HPI were reviewed during this encounter. Attendant(s): NoneConstitutional and Systemic Symptoms:none Medication Reconciliation: from medication list. Mizyvuukjff64/13/2023: Echocardiogram shows an estimated ejection fraction approximately 55%. Normal-appearing mitral valve mitral valve regurgitation mild. Chronic valve leaflets are structurally normal. No evidence of aortic insufficiency. The tricuspid valves well visualized there is mild tricuspid regurgitation. History of Present Illness #1. Coronary Artery Disease: There has been no change in frequency - duration - intensity in frequency, duration or intensity of chest pain. Other Complaints: none The frequency of anginal attacks is none at all. Additional Symptoms: none Therapy reviewed regarding cardiovascular management includes Aspirin, Crestor, Metoprolol Tartrate and Plavix #2. Type II Hypercholesterolaemia: Currently taking medication and tolerating well. No interval complaints of any muscle pain or arthralgia. No significant liver changes with medications. Last lipid panel: no testing since starting on medication. Therapy reviewed regarding treatment of cholesterol management and include diet and Crestor. #3. Type II Diabetes: Has had no polyuria polyphagia or polydipsia. Has had no hypoglycemic like responses. No new history of any numbness, tingling, weakness or visual problems. No nausea, anorexia or other constitutional symptoms. There has been no foot problems or non healing lesions. The last HAIC was DCCT HAIC: 7.5 Calculated MB mg%. CGM: No. Average blood sugars unknown. Checking sugars : several times a week. Medication Types Include: SGLT2 inhibitors Secondary complications include none. Macro-vascular complications include none. Therapy reviewed regarding diabetic management and include Medication Compliance: good Renal Protection: Farxiga Lipid management: statins Urinary microalbumin: A1 . Ophthalmological: has seen eye doctor within the last year. Control: Intermediate Control 7.1 - 8.0 #4. Hx of depression currently stable. Pharmacological treatment : Escitalopram . Suicidal thoughts or ideas: None Loss of appetite: No Sleep Disturbance: No Hallucinations: No Is currently seeing no one. Discussed possibility of decreasing and weaning off medication. Feels that current regimen is working fine and wishes not to change the current treatment regimen. No contraindication to continue current therapy. #5. Hx of obesity. Currently Class 2 Obesity BMI 35-39.99. Has tried numerous dietary support and supplements with no benefit. Instructed on the health consequences of the obese status particularly cancer - diabetes and heart disease. Discussed other modalities of weight loss no . Potential candidate for bariatric surgery: No. Wishes to be evaluated by Dietary: No and was offered to be evaluated and instructed by program developer on weight loss diet. Active Medication ListCpap As DirectedCrestor 40 MG (TABLET - ORAL) One DailyPlavix 75 MG (TABLET - ORAL) One DailyAspirin 81 MG One DailyMetoprolol Tartrate 25 MG (TABLET - ORAL) 1/2 Tab BidFarxiga 10 MG TABLET, FILM COATED One DailyEscitalopram 20 MG (CAPSULE - ORAL) Once Daily Vaccination and Immunization( ) 2022- INFLUENZA( ) 2020- COVID PFIZER(X) 2022-01 COVID BOOSTER PFIZER Surgical [id number] Bialteral [id number] Rt. Rotator Cuff Preventative Testing( ) 11/22/2023 HAIC 7.5( ) 05/31/2023 Colonoscopy ( 4 Years ) 05/31/2027( ) 11/26/2022 Albumin 4.4 G/DL N( ) 11/26/2022 PSA 1.8 NG/ML N 11/26/2024( ) 11/26/2022 Micro Albumin 151.0 UG/ML N( ) 01/23/2022 Optometry(X) 12/18/2021 LDCT 12/18/2022 Social HistoryMarital Status: MarriedSmoking Hx: 1 packs of cigarettes per day for 5 years quit 2006 Drinking Hx: 18 oz cans of soft drinks per day.Exercise: InfrequentlySexual Hx: Sexually ActiveOccupation: Music Therapy Teacher Family HistoryMother 65 years oldFather 80 years old3 Brothers 1 Living4 Sisters 2 LivingMother Hx: Seizures, ASHDFather Hx: CVASister Hx: Accidental (1) , CA Breast(1)Brother Hx: Ca of Colon (2) Ruben Bhatt MD [address] [facility], [place] [address], [place], [address], [facility] 05/11/2024 12:00:12 05/10/2025 text/html Patient Name: Ryan Merritt SrDate Of Service: Saturday ( 05.10.2025 ): 1955 Age: 69 There has been approximately a 146.5 lb weight loss since 11/09/2024. This represents approximately a 60.0% change in weight. Weight change attributable to lifestyle changes. Vital Signs:Blood Pressure: Sitting Rt. Arm 112/64Pulse: Sitting 62 /min and RegularRespiratory Rate: 16Height 68 in or 1.7 mWeight 97.5 lb or 44.2 kgBMI 14.8Temperature: 98 F or 36.7 C Chief Complaint: Addressed in HPI Problems or conditions discussed in the HPI were the only ones reviewed during the encounter.Only social and family history addressed in the HPI were reviewed during this encounter. Attendants(s) + NoneConstitutional and Systemic Symptoms:none Medication Reconciliation: from medication list. History of Present Illness #1. Coronary Artery Disease: There has been no change in frequency - duration - intensity in frequency, duration or intensity of chest pain. Other Complaints: none The frequency of anginal attacks is several times per week. Additional Symptoms: none Therapy reviewed regarding cardiovascular management includes Aspirin, Crestor, Metoprolol Tartrate and Plavix #2. Type I Hypercholesterolaemia: Currently stopped medication against advice. No interval complaints of any muscle pain or arthralgia. No significant liver changes with medications. Last lipid panel: fair control. Therapy reviewed regarding treatment of cholesterol management and include diet and Crestor. #3. Type II Diabetes: Has had no polyuria polyphagia or polydipsia. Has had several hypoglycemic like responses. No new history of any numbness, tingling, weakness or visual problems. No nausea, anorexia or other constitutional symptoms. There has been no foot problems or non healing lesions. [facility] Calculated MB mg%. CGM: No. Average blood sugars 100-115 mg%. Checking sugars : several times a week. Medication Types Include: Metformin and Sulfonylureas Secondary complications include none. Macro-vascular complications include Glipizide and Metformin. Therapy reviewed regarding diabetic management and include good Compliance: not required at this stage Renal Protection: statins Lipid management: A1 Urinary microalbumin: has seen eye doctor within the last year . Ophthalmological: Good Control 6.2 - 7.0. Control: Intermediate Control 7.1 - 8.0 Active Medication ListCpap As DirectedMetformin 1000 MG TABLET, COATED One Twice A DayVitamin D DailyCrestor 40 MG (TABLET - ORAL) One DailyPlavix 75 MG (TABLET - ORAL) One DailyAspirin 81 MG One DailyMetoprolol Tartrate 25 MG (TABLET - ORAL) 1/2 Tab BidGlipizide 5 MG TABLET Take One Tablet DailyEscitalopram 20 MG (CAPSULE - ORAL) Once Daily Adverse Drug Reactions ReviewedFarxiga Allergic Reaction (X) Vaccinations and/or Immunizations Due(X) 2023-05 INFLUENZA(X) 2022-01 COVID BOOSTER PFIZER(X) RSV Recommended(X) Shingrix Recommended(X) Tetanus or TD RecommendedImmunization s and Vaccinations Discussed and Implemented if feasible In the Office. Else referred to pharmacies. Surgical [id number] Lumbar [id number] Bialteral [id number] Rt. Rotator Cuff Preventative Testing: (X) Due (?) Optional( ) 11/09/2024 Albumin 4.3 G/DL( ) 11/09/2024 HAIC 7.1 % H( ) 05/12/2024 PSA 1.6 NG/ML 05/12/2025( ) 05/31/2023 Colonoscopy ( 4 Years ) 05/31/2027( ) 11/26/2022 Micro Albumin 151.0 UG/ML N( ) 01/23/2022 Optometry(X) 12/18/2021 LDCT 3Preventative Testing Discussed with Patient and Any Attendants Social HistoryMarital Status: MarriedSmoking Hx: 1 packs of cigarettes per day for 5 years quit 2006 Drinking Hx: 18 oz cans of soft drinks per day.Exercise: InfrequentlySexual Hx: Sexually ActiveOccupation: Music Therapy Teacher Family HistoryMother 65 years oldFather 80 years old3 Brothers 1 Living4 Sisters 2 LivingMother Hx: Seizures, ASHDFather Hx: CVASister Hx: Accidental (1) , CA Breast(1)Brother Hx: Ca of Colon (2) (X) Vaccinations and/or Immunizations Due(X) 2022- INFLUENZA(X) 2021- COVID BOOSTER PFIZER(X) RSV Recommended(X) Shingrix Recommended(X) Tetanus or TD RecommendedImmunization s and Vaccinations Discussed and Implemented if feasible In the Office. Else referred to pharmacies. Surgical [id number] Lumbar [id number] Bialteral [id number] Rt. Rotator Cuff Preventative Testing: (X) Due (?) Optional( ) 11/09/2024 Albumin 4.3 G/DL( ) 11/09/2024 HAIC 7.1 % H( ) 05/12/2024 PSA 1.6 NG/ML 05/12/2025( ) 05/31/2023 Colonoscopy ( 4 Years ) 05/31/2027( ) 11/26/2022 Micro Albumin 151.0 UG/ML N( ) 01/23/2022 Optometry(X) 12/18/2021 LDCT 3Preventative Testing Discussed with Patient and Any Attendants Active Medication ListCpap As DirectedMetformin 1000 MG TABLET, COATED One Twice A DayVitamin D DailyCrestor 40 MG (TABLET - ORAL) One DailyPlavix 75 MG (TABLET - ORAL) One DailyAspirin 81 MG One DailyMetoprolol Tartrate 25 MG (TABLET - ORAL) 1/2 Tab BidGlipizide 5 MG TABLET Take One Tablet DailyEscitalopram 20 MG (CAPSULE - ORAL) Once Daily Adverse Drug Reactions ReviewedFarxiga Allergic Reaction (X) Vaccinations and/or Immunizations Due(X) 2023-05 INFLUENZA(X) 2022-01 COVID BOOSTER PFIZER(X) RSV Recommended(X) Shingrix Recommended(X) Tetanus or TD RecommendedImmunization s and Vaccinations Discussed and Implemented if feasible In the Office. Else referred to pharmacies. Surgical [id number] Lumbar [id number] Bialteral [id number] Rt. Rotator Cuff Preventative Testing: (X) Due (?) Optional( ) 11/09/2024 Albumin 4.3 G/DL( ) 11/09/2024 HAIC 7.1 % H( ) 05/12/2024 PSA 1.6 NG/ML 05/12/2025( ) 05/31/2023 Colonoscopy ( 4 Years ) 05/31/2027( ) 11/26/2022 Micro Albumin 151.0 UG/ML N( ) 01/23/2022 Optometry(X) 12/18/2021 LDCT 12/18/2022reventative Testing Discussed with Patient and Any Attendants Social HistoryMarital Status: MarriedSmoking Hx: 1 packs of cigarettes per day for 5 years quit 2006 Drinking Hx: 18 oz cans of soft drinks per day.Exercise: InfrequentlySexual Hx: Sexually ActiveOccupation: Music Therapy Teacher Family HistoryMother 65 years oldFather 80 years old3 Brothers 1 Living4 Sisters 2 LivingMother Hx: Seizures, ASHDFather Hx: CVASister Hx: Accidental (1) , CA Breast(1)Brother Hx: Ca of Colon (2) (X) Vaccinations and/or Immunizations Due(X) 2023-05 INFLUENZA(X) 2022-01 COVID BOOSTER PFIZER(X) RSV Recommended(X) Shingrix Recommended(X) Tetanus or TD RecommendedImmunization s and Vaccinations Discussed and Implemented if feasible In the Office. Else referred to pharmacies. Surgical [id number] Lumbar [id number] Bialteral [id number] Rt. Rotator Cuff Preventative Testing: (X) Due (?) Optional( ) 11/09/2024 Albumin 4.3 G/DL( ) 11/09/2024 HAIC 7.1 % H( ) 05/12/2024 PSA 1.6 NG/ML 05/12/2025( ) 05/31/2023 Colonoscopy ( 4 Years ) 05/31/2027( ) 11/26/2022 Micro Albumin 151.0 UG/ML N( ) 01/23/2022 Optometry(X) 12/18/2021 LDCT 12/18/2022reventative Testing Discussed with Patient and Any Attendants TEST RESULT RANGE UNITSCBC WITH DIFFERENTIAL/PLATELET Date: 11/09/2024WBC 8.0 3.4-10.8 X10E3/ULHEMOGLOBIN 15.8 13.0-17.7 G/DLHEMATOCRIT 49.3 37.5-51.0 %PLATELETS 198 150-450 X10E3/ULCOMP. METABOLIC PANEL (14) Date: 11/09/2024SODIUM 141 134-144 MMOL/LPOTASSIUM 4.9 3.5-5.2 MMOL/LGLUCOSE 128 70-99 MG/DLBUN 16 8-27 MG/DLCREATININE 1.27 0.76-1.27 MG/DLEGFR 62 >59 ML/MIN/1.73ALKALINE PHOSPHATASE 70 44-121 IU/LAST (SGOT) 24 0-40 IU/LALT (SGPT) 19 0-44 IU/LHEMOGLOBIN A1C Date: 11/09/2024HEMOGLOBIN A1C 7.1 4.8-5.6 %LIPID PANEL Date: 11/09/2024HOLESTEROL, TOTAL 111 100-199 MG/DLTRIGLYCERIDES 122 0-149 MG/DLHDL CHOLESTEROL 33 >39 MG/DLLDL CHOL CALC (NIH) 56 0-99 MG/DLT4, FREE Date: 11/09/2024T4,FREE(DIREC T) 0.96 0.82-1.77 NG/DLTSH Date: 11/09/2024TSH 0.889 0.450-4.500 UIU/ML Ruben Bhatt MD [address] [facility], [facility] [address], [place], [address], [place] [facility] 05/10/2025 11:26:29
--- OUTSIDE RECORDS SUMMARY | 2025-05-20 08:05 | XMS_ITS | Continuity of Care Document ---
Author Organization [place] - [facility], [facility] 24 [address] [facility] [address] [place] [address] Care Team Providers Care Steamfitter Name Role Phone RUBEN BHATT Primary Care Provider RUBEN BHATT Referring Provider [phone] Assessment No assessment recorded. Plan of Treatment Reminders Order Date Submit Date Provider Last Modified By Organization Details Last Modified Time Details Appointments None recorded . Lab HbA1c (hemoglo bin A1c), blood 025 05/10/20 25 [email or web address] [facility], [address] [place] [address], [address], 5 09:59:51 lipid panel, serum 025 05/10/20 25 [id number] [facility], [address] [place] [address], [address], 5 09:59:50 TSH, serum or plasma 025 05/10/20 25 [email or web address] [facility], [address] [place] [address], [address], 5 09:59:50 CBC w/ auto diff 025 05/10/20 25 [facility], [address] [place] [address], [address], 5 09:59:50 CMP, serum or plasma 025 05/10/20 25 [email or web address] [facility], [address] [place] [address], [address], 5 09:59:51 Referral None recorded . Procedures None recorded . Surgeries None recorded . Imaging None recorded . Medication Orders None recorded . Patient TargetsNo targets recorded. Patient Instructions Encounter Date Encounter Id Patient Instructions Last Modified By Organization Details Last Modified Time 05/10/2025 [id number] Follow-up for coronary artery disease, hyperlipidemia, type [...] Created: Ruben Bhatt M.D. 05.10.2025 10:26 AM [email or web address] Not available 05/10/2025 11:26:10 Reason for Referral None Reported. Problems Name Problem SNOMED Code Status Onset Date Resolution Date Notes Provider Name and Address Organization Details Recorded Time Pure hyperchole sterolemia 001713111 Active Not Available [facility] 3 14:23:30 Vertigo 304446070 Active Not Available [facility] 3 14:23:30 History of polyp of colon 047040963 Active Not Available [facility] 3 14:23:31 Impaired glucose tolerance 0583354 Active Not Available [facility] 3 14:23:32 Coronary artery stenosis 483356433 Active 2017 Not Available [facility] 3 14:23:30 Depressive disorder 40223913 Active 2017 Not Available [facility] 3 14:23:30 Chronic back pain 781813421 Active 2017 Not Available [facility] 3 14:23:30 Obstructiv e sleep apnea syndrome 26060813 Active 2018 Not Available [facility] 3 14:23:31 Warthin's tumor of parotid gland 763449495 Active 2019 Not Available [facility] 3 14:23:31 Routine care Active 2021 Not Available [facility] 3 14:23:30 Memory impairment 399226341 Active 2021 Not Available [facility] 3 14:23:30 Screening for malignant neoplasm of prostate Active 2021 Not Available [facility] 3 14:23:31 Nicotine dependence 43192485 Active 2021 Not Available [facility] 3 14:23:31 Trigger finger of right hand 4802145306092 9101 Active 2021 Not Available [facility] 3 14:23:29 Finding of body mass index 122313945 Active 2021 Not Available [facility] 3 14:23:30 Neurogenic claudicati on 994002038 Active 2021 Not Available [facility] 3 14:23:30 Nodule of lung 476791076 Active 2021 Not Available [facility] 3 14:23:32 Pain in left sacroiliac joint 6448259457081 9102 Active 2022 Ruben Bhatt MD [address], [address], [place], [address] , [facility] 3 11:58:25 Hyperlipid emia 69605118 Active 2022 Candis Oliva CMA null, [place] [facility] 3 14:03:48 Acute gingivitis 06629315 Active 2023 Ruben Bhatt MD [address], [address], [place], [address] , [facility] 4 10:58:24 Obese class II 6498420433101 05 Active 2023 Ruben Bhatt MD [address], [address], [place], [address] , [facility] 4 11:10:58 Disorder of prostate 08974049 Active 2023 Ruben Bhatt MD [address], [address], [place], [address] , [facility] 4 11:15:35 Steatotic liver disease 391694206 Active 2023 Yolis Tyrone null, [facility] 4 12:04:32 Type 2 diabetes mellitus 88847744 Active 2024 Candis Oliva CMA null, [facility] 5 14:59:56 Problem Notes None recorded. Procedures Surgical History Date Name Laterality Status Provider Name and Address Organization Details Recorded Time 3 Medicare Wellness CPT Code, Initial completed Mariam Alcantar RN [facility] 05/13/2023 11:25:48 Imaging Results None recorded. Procedure Notes None recorded. Medical Equipment None Reported. Allergies Allergen ID Allergen Name Allergen Category Reaction Reaction Severity Criticality Documentation Date Start Date Code Code System Note Provider Name and Address Organization Details Recorded Time 89304 [facility] medicatio n Not available Not available high 11/09/2024 06116 72 RxNorm Annijulio Joseph null, [facility] 5 11:00:35 Medications Name Sig Start Date [...] administ ered by the provider 11/22 completed [facility]: [phone] 09-20 Not Available Not Available Not [...] Not Available gabapenti n 300 mg capsule 10/19 /2022 completed Not Available Not Available Not Available Timewell 10 mg-325 mg tablet Take 1 tablet every 6 hours by oral route. 05/21 completed [place] [employer] cover the informat ion containe d in this database Increase Text Size Decrease Text Size Restore Default Font-Siz eClick to Resize TextLast Name First Name Street Address City State Zip Date of Date Filled Label Name Strength Metric Qty/Days Supply Payment Type ? Pharmacy Name/ City Prescrib er Name [facility] [address] [facility] [id number] 7 10/03/2017 HYDROCOD ONE-ACET AMINOPHE N 7.5-325M G 40/10 [facility] RUBEN BHATT MD [facility] [address] [facility] [id number] 7 09/09/2017 HYDROCOD ONE-ACET AMINOPHE N 7.5-325M G 40/10 [facility]/ [place] MARCO BHATT Not Available Not Available Not Available Timewell 7.5 mg-325 mg tablet Take 1 tablet [...] administ ered by the provider 07/26 completed [facility]: [phone] Not Available Not Available Not Available diclofena [...] Available Not Avai lable FreeStyle Ashley 3 Coden USE TO MONITOR BLOOD SUGAR active Not Available Not Available No t Available FreeStyle [place] 3 Coden use to monitor blood sugar 05/03 completed Not Available Not Available Not Available Vitals Date Recorded Body height Body mass index (BMI) Body weight Body temperature Heart rate Respiratory rate Oxygen saturation Systolic And Diastolic Provider Name and Address Organization Details Last Updated DateTime 5 172.72 cm 37.4 kg/m2 478100. 72 g 97.5 [degF] 62 /min 16 /min 98 % 112/64 mm[Hg] Bekah Luis, RN [place] [facility] 5 10:48:46 Social History Question Answer Notes LastModified by Organizat ion Details LastModified Time Tobacco Smoking Status Former Smoker Not Available [facility] 08/01/2022 14:17:16 Do You Have An Advance Directive? No [id number] Information not available 08/01/2022 Are You Blind Or Do You Have Difficulty Seeing? No [email or web address] Information not available 05/13/2023 Are You Deaf Or Do You Have Serious Difficulty Hearing? No kurhztdkgn90 Information not available 05/13/2023 What Type Of Diet Are You Following? REGULAR tcclgrnuaa70 Information not available 05/13/2023 Have There Been Any Changes To Your Family Or Social Situation? No cvbfgemyka72 Information not available 05/13/2023 What Is The Fluoride Status Of Your Home? Unknown pfqfhyqkoo06 Information not available 05/13/2023 When Did You Quit Smoking? 17+yearssincelastci ally [id number] Information not available 08/01/2022 Are There Any Guns Present In Your Home? No alvupgbjct59 Information not available 05/13/2023 Do You Use Insect Repellent Routinely? No Information not available 05/13/2023 Where Do You Live? SingleLevelHouse bfmmfzdidn55 Information not available 05/13/2023 Guns Present In The Home? No mjzaazrwzs93 Information not available 05/13/2023 Are You Able To Care For Yourself? Yes [email or web address] Information not available 05/13/2023 Are You Blind Or Do Yo Have Difficulty Seeing? No gedfayvged27 Information not available 05/13/2023 Are You Deaf Or Do You Have Serious Difficulty Hearing? No [email or web address] Information not available 05/13/2023 Live Alone Of With Others? With Others [email or web address] Information not available 05/13/2023 Do You Have A Medical Power Of Breaker Table Worker? No [id number] Information not available 08/01/2022 What Was The Date Of Your Most Recent Tobacco Screening? 05/13/2023 igvflyekec44 Information not available 05/13/2023 Do You Have Any Pets? Yes [email or web address] Information not available 05/13/2023 What Is Your Relationship Status? wlvynmjykd32 Information not available 05/13/2023 Do You Use Your Seat Belt Or Car Seat Routinely? Yes srybavckcn08 Information not available 05/13/2023 Do You Have Smoke And Carbon Monoxide Detectors In Your Home? Yes nhnyavewfu09 Information not available 05/13/2023 Are You Passively Exposed To Smoke? No gduyhsrgom21 Information not available 05/13/2023 Are There Any Smokers In Your House? No xluodqbxuz53 Information not available 05/13/2023 Do You Use Sunscreen Routinely? Yes sokglchmsy80 Information not available 05/13/2023 Have You Recently Traveled Abroad? No kzoxfrkfnq16 Information not available 05/13/2023 Do You Have Difficulty Walking Or Climbing Stairs? No pfultlsuuy26 Information not available 05/13/2023 Sex: Male Functional Status Question Answer Note LastModified by Organizat ion Details LastModified Time What is your level of alcohol consumption? Occasional sviadmplxr55 Information not available 05/13/2023 Do you have transportation difficulties? No Information not available 05/13/2023 Are you able to walk independently without assistance or assistive devices? YESWOREST lbihpgrpxk27 Information not available 05/13/2023 Do you have difficulty doing errands alone? No vgxetnezkr24 Information not available 05/13/2023 Are you able to care for yourself independently? Yes eviglcqtcn46 Information not available 05/13/2023 Do you have difficulty dressing, bathing, grooming, or toileting? No zqvuptavgs51 Information not available 05/13/2023 What is your exercise level? Occasional sovihsyeft55 Information not available 05/13/2023 Mental Status Question Answer Note LastModified by Organization D etails LastModified Time Do you have difficulty concentrating, remembering or making decisions? No ugnqsdhjjb17 Information no t available 05/13/2023 Family History Relationship Description Onset Age of this Age Resolved Age Notes LastModified by Organization Details LastModified Time Sister Family history of malignant neoplasm [id number] Not available 08/01/2022 14:17:33 Sister Hypertensive disorder MIGRATION.750 [id number] Not available 08/01/2022 14:17:34 Brother Family history of malignant neoplasm [id number] [id number] Not available 08/01/2022 14:17:34 Brother Diabetes mellitus MIGRATION.595 [id number] Not available 08/01/2022 14:17:34 Brother Heart disease MIGRATION.107 [id number] Not available 08/01/2022 14:17:34 Notes:Mother 65 yea [...] HEARING PROBLEMS N MUMPS N SHINGLES N DEPRESSION (INCLUDING POST ) N BOWEL PROBLEMS N STROKE/TIA N ULCERS N BENIGN PROSTATIC HYPERPLASIA N MEASLES N HYPOTENSION N MYOCARDIAL INFARCTION N OBESITY N GERD/NAUSEA N ANEURYSM N URINARY/BLADDER/KIDNEY PROBLEMS N CORONARY ARTERY DISEASE (CAD) Y ADDICTION CONCERNS N Impotence N ENDOMETRIOSIS N USE OF BLOOD THINNERS N SKIN [...] GLAUCOMA N FOOT PROBLEM N DIVERTICULITIS N SLEEP APNEA Y CHICKENPOX N INFECTIOUS DISEASE N PROSTATE N HEART ARRHYTHMIA N INSOMNIA N HIGH CHOLESTEROL / HYPERLIPIDEMIA Y EYE PROBLEMS N HYPERTHYROIDISM N EDEMA N CHRONIC PAIN SYNDROME N HYPOTHYROIDISM N CAROTID BLOCKAGE N CONSTIPATION N BACK / NECK PROBLEMS N HAVE YOU BEEN HOSPITALIZED OR SEEN IN [facility] IN THE PAST YEAR ? N ATHEROSCLEROSIS N BREAST PROBLEMS N DIALYSIS N ECZEMA N OSTEOPOROSIS N ARTHRITIS N NO SIGNIFICANT PAST MEDICAL HISTORY N APPENDICITIS N DIABETES, TYPE Y BAD TEETH N ENT N HEARTBURN / REFLUX N AUTISM SPECTRUM DISORDER (ASD) N HEPATITIS / LIVER DISEASE N GOUT N SLEEP DISORDER N ALZHEIMER'S DISEASE N Brain Problems N DEMENTIA N HERPES N SEIZURES/EPILEPSY N HEADACHES/MIGRAINES N VASCULAR DISEASE N PACEMAKER N Blood Disorder N DIZZINESS N HEART DISEASE/HEART PROBLEMS N KIDNEY DISEASE N MULTIPLE SCLEROSIS N CANCER: SPECIFY N CARDIAC ARRHYTHMIA N ATRIAL FIBRILLATION N Gall Stones N PULMONARY EMBOLISM N AUTOIMMUNE DISEASE N Immunizations Vaccine Type Date Status Note Provider Nam e and Address Organization Details Recorded Time Influenza, high-dose, trivalent, PF completed Bekah Luis RN null, [place] [facility] 05/11/2025 08:41:27 Influenza, high-dose, quadrivalent, PF 3 completed Ruben Bhatt MD [address] [facility] [address] [place] [facility], [address], [place], [address], [facility] 05/13/2023 11:33:56 SARS-COV-2 (COVID-19) vaccine, UNSPECIFIED 2 completed Not Available [facility] 08/01/2022 14:32:53 SARS-COV-2 (COVID-19) vaccine, UNSPECIFIED 1 completed Not Available [facility] 08/01/2022 14:32:54 COVID-19 Non-US Vaccine, UNSPECIFIED 1 completed Not Available [facility] 08/01/2022 14:32:54 COVID-19 Non-US Vaccine, UNSPECIFIED 1 completed Not Available [facility] 08/01/2022 14:32:54 Influenza, high-dose, quadrivalent, PF 2 completed Not Available [facility] 08/01/2022 14:32:54 Influenza, split virus, quadrivalent, PF 6 completed Not Available [facility] 08/01/2022 14:32:54 Influenza, split virus, quadrivalent, preservative 5 completed Not Available [facility] 08/01/2022 14:32:55 Past Encounters Encounter ID Performer Location Encounter Start Date Encounter Closed Date Diagnosis/Indication Diagnosis SNOMED-CT Code Diagnosis ICD10 Code Diagnosis IMO Codes Diagnosis Note [id number] Ruben Bhatt MD [facility] [address] [place] [facility], [facility] [address] [place] [address] 05/10/2025 10:40:30 05/10/2025 11:40:01 Coronary artery stenosis 270897556 I25.10 Pure hypercholesterolemia 148776513 E78.00 Type 2 oanh betes mellitus 44218667 E11.69 E11.9 76403875 [id number] Health Concerns Section Related Observation LastModified by Organization Jose ls LastModified Time None Recorded Concern Status LastModified by Organization Details LastModified Time None Recorded Payers Encounter Date Sequence Insurance Name Policy Number Policy Yen Covered Member ID Yen Member ID Guarantor Name 05/10/2025 1 [facility] [id number] Lynn Merritt [id number] Ryan Merritt 05/10/2025 2 [place] Ryan Merritt [id number] Ryan Merritt Notes Date Note Type Note Provider Name and Address Organization Details Recorded Time 05/10/2025 text/html Patient Name: Ryan Merritt SrDate [...] lesions. The last HAIC was DCCT HAIC: 7.1 Calculated MB mg%. CGM: No. [...] Allergic Reaction (X) Vaccinations and/or Immunizations Due(X) 2022- INFLUENZA(X) 2021- COVID BOOSTER PFIZER(X) RSV Recommended(X) Shingrix Recommended(X) Tetanus or TD RecommendedImmunization s and Vaccinations Discussed and Implemented if feasible In the Office. Else referred to pharmacies. Surgical [id number] Lumbar Ewtubphq5191-03 [id number] Bialteral [id number] Rt. Rotator Cuff Preventative Testing: (X) Due [...] drinks per day.Exercise: InfrequentlySexual Hx: Sexually ActiveOccupation: Swing Tender Family HistoryMother 65 years oldFather 80 years [...] the Office. Else referred to pharmacies. Surgical [id number] Lumbar Iqixqhox7970-04 [id number] Bialteral [id number] Rt. Rotator Cuff Preventative Testing: (X) Due [...] the Office. Else referred to pharmacies. Surgical [id number] Lumbar [id number] [id number] Bialteral [id number] Rt. Rotator Cuff Preventative Testing: (X) Due [...] drinks per day.Exercise: InfrequentlySexual Hx: Sexually ActiveOccupation: Swing Tender Family HistoryMother 65 years oldFather 80 years old3 Brothers 1 Living4 Sisters 2 LivingMother Hx: Seizures, ASHDFather Hx: CVASister Hx: Accidental (1) , [place] Breast(1)Brother Hx: Ca of Colon (2) (X) Vaccinations and/or Immunizations Due(X) 2023-05 INFLUENZA(X) 2021- COVID BOOSTER PFIZER(X) RSV Recommended(X) Shingrix Recommended(X) Tetanus or TD RecommendedImmunization s and Vaccinations Discussed and Implemented if feasible In the Office. Else referred to pharmacies. Surgical [id number] Lumbar [id number] Bialteral [id number] Rt. Rotator Cuff Preventative Testing: (X) Due [...] 0.889 0.450-4.500 UIU/ML Ruben Bhatt MD [address] [facility], [facility] [address], [place], [address], [place] [facility] 05/10/2025 11:26:29
--- OUTSIDE RECORDS SUMMARY | 2025-05-20 08:05 | XMS_ITS | Clinical Summary ---
Author Organization 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 Gender Identity Not on file Sexual Orientation Not on file Plan of Treatment Health Maintenance Due Date Last Done Comments DIABETES ANNUAL FOOT EXAM 1974 DIABETES MICROALBUMIN ANNUAL SCREEN 1974 LDL CHOLESTEROL ANNUAL 1974 COLORECTAL SCREENING 2001 Colorectal Cancer Screening 2001 FIT-DNA Q 3 years 2001 FIT/FOBT Q 1 year 2001 Flex Sig/CT Colonography Q 5 years 2001 PNEUMOCOCCAL VACCINE 50+ YEA RS (2 of 2 - PCV) 01/16/2022 01/16/2021 DIABETES HBA1C Q 6 MONTHS 06/08/2023 12/06/2022 DIABETES ANNUAL RETINAL EXAM 12/07/2023 12/06/2022 INFLUENZA VACCINE (#1) 2025 2, 02/23/2020, 04/19/2016, Additional history exists DTAP/TDAP/TD VACCINES (2 - T d or Tdap) 02/22/2030 02/23/2020 RSV VACCINE (60+ or ) (1 - 1-dose 75+ series) 11/14/2031 ZOSTER VACCINE Completed 04/05/2021, 01/16/[address] [place] [address] [id number] MEDICARE PART A AND B
--- OUTSIDE RECORDS SUMMARY | 2025-05-20 08:05 | XMS_ITS | Clinical Summary ---
Author Organization [facility] Address [address] [place] [address] Care Team Providers Care Explosive Man Name Role Phone Doroteo Bhatt MD Primary Care Provider [phone] Allergies No known active allergies Medications metoprolol succinate ER 25 MG 24 hr tablet Take 25 mg by mouth daily. T IN THE MORNING T AT NIGHT Active citalopram 20 MG tablet Take 20 mg by mouth daily. 11/27/2019 Active vitamin B-12 500 MCG tablet Take 500 mcg by mouth daily. Active rosuvastatin (CRESTOR) 20 MG tablet Take 20 mg by mouth daily. Active aspirin EC (ECOTRIN) 81 MG tablet Take 1 tablet by mouth daily. Active Active Problems No known active problems Family History Medical History Relation Comments Cancer Brother 1 COLON Cancer Brother 2 COLON Cancer Brother 3 COLON CANCER Hyperlipidemia Brother 3 No Known Problems Daughter 1 No Known Problems Daughter 2 Stroke Father Arthritis Mother Seizures Mother GRAND MAL SEIZUR E HOUSEFIRE KILLED AT 9MO OLD Sister 1 Cancer Sister 2 BREAST CANCER Diabetes Sister 3 Seizures Sister 3 Stroke Sister 3 MINI Diabetes Sister 4 Hyperlipidemia Sister 4 Hypertension Sister 4 No Known Problems Son 1 No Known Problems Son 2 Relation Status Comments Brother 1 Brother 2 Brother 3 Alive Daughter 1 Alive Daughter 2 Alive Father Mother Sister 1 Sister 2 Sister 3 Alive Sister 4 Alive Son 1 Alive Son 2 Alive Social History Tobacco Use Types Packs/Day Years Used Date Smoking Tobacco: Former Cigarettes Q uit: 06/03/1999 Smokeless Tobacco: Never Tobacco Cessation:Counseling Given: No Comments:Former, Quit 1999 Alcohol Use Standard Drinks/Week Comments Not Currently 0 (1 standard drink = 0.6 oz pur e alcohol) NA PHQ-2 Answer Date Recorded PHQ-2 Score - If the patient scores above 3, please move on to questions 3-9 0 02/14/2022 Sex and Gender Information Value Date Recorded Sex Assigned at Not on file Legal Sex Male 12:49 PM CDT Gender Identity Not on file Sexual Orientation Not on file Last Filed Vital Signs Vital Sign Reading Time Taken Comments Blood Pressure 106/69 02/14/2022 2:22 PM CDT Pulse 80 02/14/2022 2:22 PM CDT Temperature 35.9 C (96.7 F) 02/14/2022 2:22 PM CDT Respiratory Rate 18 02/14/2022 2:22 PM CDT Oxygen Saturation 98% 02/14/2022 2:22 PM CDT Inhaled Oxygen Concentration - - Weight 116.2 kg (256 lb 3.2 oz) 02/14/2022 2:22 PM CDT Height 177.8 cm (5' 10) 02/14/2022 2:22 PM CDT Body Mass Index 36.76 02/14/2022 2:22 PM CDT Plan of Treatment Health Maintenance Due Date Last Done Comments Colorectal Cancer Screening Colonoscopy (10 Years) 1956 Hepatitis C 1974 DTaP, Tdap and Td Vaccines ( 1 - Tdap) 11/14/1975 Pneumococcal Vaccine: 50+ Years (1 of 1 - PCV) 2006 Zoster Vaccines (1 of 2) 2006 Annual Medicare Wellness Visit 2021 COVID-19 Vaccine (2 - 2024-2 6 season) 2025 03/17/2021 Influenza Adult (#1) 2025 04/19/2016, 03/08/2015 RSV Immunization or 60+ Years (1 - 1-dose 75+ series) 11/14/2031 Hepatitis A Vaccines Aged Out No long er eligible based on patient's age to complete this topic Meningococcal B Vaccine Aged Out No l onger eligible based on patient's age to complete this topic Meningococcal Vaccine Aged Out No anuja kerri eligible based on patient's age to complete this topic RSV Immunizations Under 20 Months Aged Out No longer eligible b ased on patient's age to complete this topic Insurance MEDICARE Care Teams Explosive Man Relationship Specialty Start Date End Date Doroteo Bhatt MD [address] [address] PCP - General INTERNAL MEDICINE 12/11/19
== END 2025-05-20 08:00 | disposition home or self-care (01) ==
PROVIDERS: PCP Internal Medicine; Visit Provider Internal Medicine
DX: Z12.2 Encounter for screening for malignant neoplasm of respiratory organs (principal); Z87.891 Personal history of nicotine dependence; R91.1 Solitary pulmonary nodule
CPT/HCPCS: 71271